=== PATIENT | female | born 1950 | race Caucasian/White ===

== ENCOUNTER 2020-08-05 21:15 | Emergency (ER) | payer MEDICARE, SELFPAY ==
[2020-08-05 21:40] VITALS: BP 171/75; PULSE 50; RESP 16; TEMP 36.2; O2SAT 96; BMI 32.5
--- NOTE | 2020-08-05 21:54 | ECG_ITS ---
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 Measurements Intervals [place] Rate: P: HI: QRS: 0 QRSD: T: 0 QT: QTc: Interpretive Statements SUPRAVENTRICULAR BRADYCARDIA-possibly sinus INDETERMINATE AXIS ABNORMAL RHYTHM ECG WARNING: DATA QUALITY MAY AFFECT INTERPRETATION No previous ECG available for comparison Electronically Signed On 08-06-2020 23:51:26 CDT by Almas Winter M.D. [id number]
--- NOTE | 2020-08-05 22:12 | CTR_ITS ---
PROCEDURE INFORMATION: Exam: CT Angiography Chest With Contrast Exam date and time: 08/05/2020 11:21 PM Age: 70 years old Clinical indication: Abdominal pain; Generalized; Chest pain; Additional info: Chest/abdomnal pain, SOB TECHNIQUE: Imaging protocol: Computed tomographic angiography of the chest with contrast. 3D rendering (Not supervised by radiologist): MIP and/or 3D reconstructed images were created by the technologist. Radiation optimization: All CT scans at this facility use at least one of these dose optimization techniques: automated exposure control; mA and/or kV adjustment per patient size (includes targeted exams where dose is matched to clinical indication); or iterative reconstruction. Contrast material: OMNI 350; Contrast volume: 95 ml; Contrast route: INTRAVENOUS (IV); COMPARISON: No relevant prior studies available. RADIATION DOSE METRICS: Total DLP (mGy-cm): 1541.69 FINDINGS: Pulmonary arteries: Normal. No pulmonary emboli. Aorta: Unremarkable. No aortic aneurysm. No aortic dissection. Lungs: Incidental calcified granuloma in the right lower lobe. There are several bands of linear atelectasis in the middle lobe and lingula. Pleural spaces: No pneumonia, mass or pleural effusion. Heart: Unremarkable. No cardiomegaly. No pericardial effusion. Lymph nodes: Incidental calcified right hilar lymph nodes. Bones/joints: Mild chronic degenerative changes in the midthoracic spine. Soft tissues: Unremarkable. IMPRESSION: No significant chest findings. PROCEDURE INFORMATION: Exam: CT Abdomen And Pelvis With Contrast Exam date and time: 08/05/2020 11:21 PM Age: 70 years old Clinical indication: Abdominal pain; Generalized; Chest pain; Additional info: Chest/abdomnal pain, SOB TECHNIQUE: Imaging protocol: Computed tomography of the abdomen and pelvis with contrast. Radiation optimization: All CT scans at this facility use at least one of these dose optimization techniques: automated exposure control; mA and/or kV adjustment per patient size (includes targeted exams where dose is matched to clinical indication); or iterative reconstruction. Contrast material: OMNI 350; Contrast volume: 95 ml; Contrast route: INTRAVENOUS (IV); COMPARISON: No relevant prior studies available. RADIATION DOSE METRICS: Total DLP (mGy-cm): 1541.69 FINDINGS: Liver: There is incidental perfusion anomaly in hepatic segment 5. The liver is otherwise normal. Gallbladder and bile ducts: Normal. No calcified stones. No ductal dilation. Pancreas: Normal. No ductal dilation. Spleen: Normal. No splenomegaly. Adrenal glands: Normal. No mass. Kidneys and ureters: Normal. No hydronephrosis. Stomach and bowel: No bowel obstruction or ileus. Numerous calcifications and a possible patent anastomosis is noted at the rectosigmoid junction. Appendix: No evidence of appendicitis. Intraperitoneal space: No free fluid or mesenteric edema. Vasculature: Scattered calcified plaques in the abdominal aorta. No aneurysm or significant stenosis. Lymph nodes: Unremarkable. No enlarged lymph nodes. Urinary bladder: Unremarkable as visualized. Reproductive: The uterus is surgically absent and the ovaries are not seen. Bones/joints: Chronic lower lumbar degenerative disc disease. Soft tissues: Small umbilical hernia consist of fatty tissue only. CT/CT angio chest w abd pel w con IMPRESSION: 1. No significant abdominal or pelvic findings 2. Incidental findings as described Radiation Dose CTDIVOL = (mGy): DLP = 1541.69~1541.69 (mGy-cm)
[2020-08-05 22:14] VITALS: BP 152/73; PULSE 51; RESP 17; O2SAT 96
[2020-08-05] MEDS: ondansetron 2 mg/ML SDV 2 mL 8 MG IVP (22:17)
[2020-08-05 22:20] LABS: Basophils # 0.1 10^3/uL (0.0-0.1); Eosinophils # 0.1 10^3/uL (0.0-0.8); Hemoglobin 13.4 g/dL (11.5-15.3); Lymphocytes # 2.4 10^3/uL (0.8-4.8); Lymphocytes % 33.9 %; Mean Corpuscular HGB Conc 31.9 g/dL (30.0-36.0); Mean Corpuscular Hemoglobin 28.6 pg (28.0-34.0); Mean Corpuscular Volume 89.6 fL (81-99); Mean Platelet Volume 9.8 fL (7.4-10.4); Monocytes # 0.6 10^3/uL (0.2-0.9); Monocytes % 7.8 %; Neutrophils # 3.86 10^3/uL (1.8-7.7); Nucleated Red Blood Cells % 0 %; Platelet Count 293 10^3/cmm (130-400); Red Blood Count 4.69 10^6/uL (4.1-5.3); Red Cell Distribution Width 12.7 % (12.1-15.1)
[2020-08-05] MEDS: sodium chloride 0.9% 1,000 ML 999 ML IV (22:29)
[2020-08-05] MEDS: lidocaine 2% viscous 15 ML, aluminum-mag hydrox-simethicon 30 ML, sucralfate oral liq 1 GM PO (22:29)
[2020-08-05 22:38] LABS: Troponin(5th) Baseline 10 ng/L (0-10)
[2020-08-05 22:45] VITALS: BP 152/73; PULSE 47; RESP 15; O2SAT 97
[2020-08-05 22:46] LABS: Alanine Aminotransferase 22 U/L (0-33); Albumin Level 4.6 g/dL (3.5-5.2); Alkaline Phosphatase 52 IU/L (35-105); Anion Gap 15.9 (5-19); Aspartate Amino Transferase 24 U/L (0-32); Blood Urea Nitrogen 17 mg/dL (8-23); Calcium 9.5 mg/dL (8.5-10.5); Carbon Dioxide 30 mmol/L (22-29); Chloride 96 mmol/L (98-107); Globulin 2.6 g/dL (1.3-4.6); Glucose 90 mg/dL (65-115); Lipase 38 U/L (13-60); NT Pro B Type Natriuretic Pept 263 pg/mL (0-125); Osmolality Calculated 287 mOsm/kg (285-295); Potassium 3.9 mmol/L (3.5-5.1); Sodium 138 mmol/L (136-145); Total Bilirubin 0.5 mg/dL (0.15-1.2); Total Protein 7.2 g/dL (6.6-8.7)
[2020-08-05 22:59] LABS: Add Urine Microscopic? YES; Bilirubin Urine Neg (Negative); Blood Urine Neg (Negative); Glucose Urine UA Norm (Normal); Ketones Urine Negative (Negative); Leukocyte Esterase Urine 2+ (Negative); Nitrate Urine Negative (Negative); Protein Urine Neg (Negative); Sulfosalicylic Acid Urine Negative (Negative); Urine Appearance Clear (CLEAR); Urine Color Yellow (Yellow); Urobilinogen Urine Norm (Negative); pH Urine 8 (5-7)
[2020-08-05 23:00] VITALS: BP 152/71; PULSE 46; RESP 16; O2SAT 97
[2020-08-05 23:00] LABS: RBC Urine 0-4 /hpf (0-2); Squamous Epithelial Cell Urine 0-4 /hpf (0-5)
[2020-08-05 23:01] LABS: Add Urine Culture? Yes; Bacteria Urine TRACE /hpf; Renal Epithelial Cells Urine 0-4 /hpf
[2020-08-05] MEDS: iohexol 350 mg/mL 100 mL Btl IV (23:42)
[2020-08-06] VITALS: BP 149/66; PULSE 51; RESP 20; O2SAT 96
[2020-08-06 01:00] VITALS: BP 117/67; PULSE 54; RESP 23; O2SAT 94
[2020-08-06] MEDS: cefTRIAXone 1,000 MG in sodium chloride 0.9% (plus) 50 ML 100 MG IV (01:16)
[2020-08-06 01:25] LABS: Troponin 5 2HR 10.53 ng/L (0-10); Troponin 5 2HR Delta 0.53 ABS# (0-10)
[2020-08-06 01:58] VITALS: BP 144/64; PULSE 53; RESP 16; TEMP 36.6; O2SAT 96
--- NOTE | 2020-08-06 04:19 | W.ED.SOB ---
HPI - SOB/Dyspnea General: Chief Complaint: Shortness of Breath/Dyspnea Stated Complaint: SOB, bloating, high blood pressure, Time Seen by Provider: 08/05/20 21:47 History of Present Illness: HPI Narrative: 70-year-old female presenting with multiple complaints including a bloated sensation in her right upper abdomen, shortness of breath, and chest and belly discomfort. No vomiting. No diarrhea. No fever MD elicited complaint: shortness of breath Pertinent past history: other Onset (ago): hour(s) Timing: intermittent Severity: moderate Exacerbating factors: exertion and stress Associated symptoms: Reports chest pain and nausea; Deny cough, dizziness, fever(s) or vomiting Treatment prior to arrival: none Review of Systems Const: Denies: fever(s) Eyes: Denies: change in vision ENMT: Denies: odynophagia or sinus pain Card: Reports: chest pain Resp: Reports: dyspnea; Denies: productive cough, non-productive cough or wheezing GI: Reports: nausea; Denies: vomiting : Denies: dysuria or urinary frequency Musc: Denies: neck pain or back pain Skin/Breast: Denies: rash or erythema Neuro: Denies: headache(s), dizziness or vertigo Psych: Denies: anxiety Physical Exam Const: GENERAL APPEARANCE: well developed ORIENTATION/CONSCIOUSNESS: Yes oriented to person, Yes oriented to place and Yes oriented to time HENMT: COMMON NORMALS: normocephalic, external ears normal and Normal external nose present HEAD & SCALP: normocephalic FACE & SINUS: normal facial exam NOSE: Normal external nose present and No nasal discharge present EXTERNAL EAR: Yes external ears normal MOUTH: tongue normal Eye: COMMON NORMALS: Equal, round and reactive pupils present, EOMs intact bilaterally and conjunctivae normal EYELID: eyelids normal CONJUNCTIVA: Yes conjunctivae normal PUPIL: Yes Equal, round and reactive pupils present Neck/C-Spine: GENERAL: No tracheal deviation Chest: COMMONS NORMALS: normal inspection of the chest CHEST: No tenderness Resp: COMMON NORMALS: clear to auscultation bilaterally EFFORT & INSPECTION: No tachypneic, No respiratory distress, No retractions, No uses accessory muscles and No tracheal deviation AUSCULTATION: clear to auscultation bilaterally, no rhonchi, no wheezes and lung sounds not diminished Cardio: COMMON NORMALS: regular rhythm RATE: bradycardic RHYTHM: regular rhythm HEART SOUNDS: no murmurs PERIPHERAL PULSES: radial pulses present GI: INSPECTION: No abdominal distension AUSCULTATION: No Hyperactive bowel sounds present and No Hypoactive bowel sounds present PALPATION: No Guarding due to palpation present (GI) and No Rigid due to palpation PERCUSSION: no dullness to percussion and no tympanic to percussion Neuro: SENSORIUM/ORIENTATION: Yes oriented to person, Yes oriented to place and Yes oriented to time Psych: COMMON NORMALS: mental status grossly normal Skin: COMMON NORMALS: no rashes or lesions noted GENERAL SKIN EXAM: no rashes or lesions noted Course Vital Signs: Vital signs: Vital Signs Temperature 97.8 F 08/06/20 01:58 Pulse Rate 53 L 08/06/20 01:58 Respiratory Rate 16 08/06/20 01:58 Blood Pressure 144/64 08/06/20 01:58 Pulse Oximetry 96 08/06/20 01:58 MDM - SOB/Dyspnea MDM Narrative: Medical decision making narrative: 70-year-old female with bloating, shortness of breath, chest and belly discomfort. Hemoglobin 13.4. White blood cell count 7. Like her lites renal function and liver enzymes are benign. Her troponin did not elevate at 2 hours. EKG showed a sinus bradycardia without ST change. Urinalysis showed 2+ leukocyte esterase with leukocytes in the urine. She is given a gram of Rocephin for this. CTs of the chest abdomen pelvis negative for any acute problems. She has had improvement in her symptoms. Encouraged outpatient follow-up, and return for worsening again Lab Data: Labs: Lab Results 08/05/20 08/05/20 08/05/20 Range/Units 22:10 22:10 22:10 WBC 7.0 (4.0-10.0) 10^3/ uL RBC 4.69 (4.1-5.3) 10^6/u L Hgb 13.4 (11.5-15.3) g/dL Hct 42.0 (37.0-47.0) % MCV 89.6 (81-99) fL MCH 28.6 (28.0-34.0) pg MCHC 31.9 (30.0-36.0) g/dL RDW 12.7 (12.1-15.1) % Plt Count 293 (130-400) 10^3/c mm MPV 9.8 (7.4-10.4) fL Neut % (Auto) 55.0 % Lymph % (Auto) 33.9 % [place] % (Auto) 7.8 % Eos % (Auto) 2.0 % Baso % (Auto) 1.0 % Neut # (Auto) 3.86 (1.8-7.7) 10^3/u L Lymph # (Auto) 2.4 (0.8-4.8) 10^3/u L [place] # (Auto) 0.6 (0.2-0.9) 10^3/u L Eos # (Auto) 0.1 (0.0-0.8) 10^3/u L Baso # (Auto) 0.1 (0.0-0.1) 10^3/u L Nucleated RBC % (a uto) 0 % Nucleated RBCs # 0.0 /100WBC Sodium 138 (136-145) mmol/L Potassium 3.9 (3.5-5.1) mmol/L Chloride 96 L (98-107) mmol/L Carbon Dioxide 30 H (22-29) mmol/L Anion Gap 15.9 (5-19) BUN 17 (8-23) mg/dL Creatinine 0.8 (0.5-0.9) mg/dL GFR Calculation Not Reportable Glucose 90 (65-115) mg/dL Calculated Osmolal ity 287 (285-295) mOsm/k g Calcium 9.5 (8.5-10.5) mg/dL Total Bilirubin 0.5 (0.15-1.2) mg/dL AST 24 (0-32) U/L ALT 22 (0-33) U/L Alkaline Phosphata se 52 (35-105) IU/L Troponin T Baselin e 10 (0-10) ng/L Troponin T 120 Min jaime (0-10) ng/L Delta Troponin T (0-10) ABS# NT-Pro-B Natriuret Pep 263 H (0-125) pg/mL Total Protein 7.2 (6.6-8.7) g/dL Albumin 4.6 (3.5-5.2) g/dL Globulin 2.6 (1.3-4.6) g/dL Lipase 38 (13-60) U/L Urine Color (Yellow) Urine Appearance (CLEAR) Urine pH (5-7) Ur Specific Gravit y (1.005-1.030) Urine Protein (Negative) Urine Glucose (UA) (Normal) Urine Ketones (Negative) Urine Blood (Negative) Urine Nitrate (Negative) Urine Bilirubin (Negative) Prot Sulfosalicyli c Acd (Negative) Urine Urobilinogen (Negative) mg/dL Ur Leukocyte Dorie ase (Negative) Urine RBC (0-2) /hpf Urine WBC (0-5) /hpf Ur Squamous Epith Cells (0-5) /hpf Ur Renal Epithelia l Cell /hpf Amorphous Sediment Urine Bacteria (NONE) /hpf 08/05/20 08/06/20 Range/Units 22:29 00:25 WBC (4.0-10.0) 10^3/ uL RBC (4.1-5.3) 10^6/u L Hgb (11.5-15.3) g/dL Hct (37.0-47.0) % MCV (81-99) fL MCH (28.0-34.0) pg MCHC (30.0-36.0) g/dL RDW (12.1-15.1) % Plt Count (130-400) 10^3/c mm MPV (7.4-10.4) fL Neut % (Auto) % Lymph % (Auto) % [place] % (Auto) % Eos % (Auto) % Baso % (Auto) % Neut # (Auto) (1.8-7.7) 10^3/u L Lymph # (Auto) (0.8-4.8) 10^3/u L [place] # (Auto) (0.2-0.9) 10^3/u L Eos # (Auto) (0.0-0.8) 10^3/u L Baso # (Auto) (0.0-0.1) 10^3/u L Nucleated RBC % (a uto) % Nucleated RBCs # /100WBC Sodium (136-145) mmol/L Potassium (3.5-5.1) mmol/L Chloride (98-107) mmol/L Carbon Dioxide (22-29) mmol/L Anion Gap (5-19) BUN (8-23) mg/dL Creatinine (0.5-0.9) mg/dL GFR Calculation Glucose (65-115) mg/dL Calculated Osmolal ity (285-295) mOsm/k g Calcium (8.5-10.5) mg/dL Total Bilirubin (0.15-1.2) mg/dL AST (0-32) U/L ALT (0-33) U/L Alkaline Phosphata se (35-105) IU/L Troponin T Baselin e (0-10) ng/L Troponin T 120 Min jaime 10.53 H (0-10) ng/L Delta Troponin T 0.53 (0-10) ABS# NT-Pro-B Natriuret Pep (0-125) pg/mL Total Protein (6.6-8.7) g/dL Albumin (3.5-5.2) g/dL Globulin (1.3-4.6) g/dL Lipase (13-60) U/L Urine Color Yellow (Yellow) Urine Appearance Clear (CLEAR) Urine pH 8 H (5-7) Ur Specific Gravit y 1.010 (1.005-1.030) Urine Protein Neg (Negative) Urine Glucose (UA) Norm (Normal) Urine Ketones Negative (Negative) Urine Blood Neg (Negative) Urine Nitrate Negative (Negative) Urine Bilirubin Neg (Negative) Prot Sulfosalicyli c Acd Negative (Negative) Urine Urobilinogen Norm (Negative) mg/dL Ur Leukocyte Dorie ase 2+ H (Negative) Urine RBC 0-4 H (0-2) /hpf Urine WBC 5-10 H (0-5) /hpf Ur Squamous Epith Cells 0-4 H (0-5) /hpf Ur Renal Epithelia l Cell 0-4 /hpf Amorphous Sediment Not Reportable Urine Bacteria Trace (NONE) /hpf Discharge Plan Discharge Patient Disposition: Home Clinical Impression: Gastro-esophageal reflux Qualifiers: Esophagitis presence: without esophagitis Qualified Code(s): K21.9 - Gastro-esophageal reflux disease without esophagitis Condition: Stable Prescriptions: New Prevacid 30 mg capsule,delayed release(DR/EC) 30 mg PO DAILY Qty: 30 RF: 0 Discharge Orders: Discharge ED (Routine); Ordered 08/06/20 Ordered By: Hadley Arias Discharge Diet: Advance as tolerated Discharge Activity: Increase activity as tolerated Patient Instructions: Urinary Tract Infection in Women (ED), Gastroesophageal Reflux Disease (ED) Activity Restrictions/Additional Instructions: Return for chest or belly discomfort, nausea or vomiting, worsening shortness of breath, fever greater than 100, other concerning symptoms. Follow-up with your doctor later this week, as there may be more tests they wish to run as an outpatient. Coding Level of Care Code ED Body Piercer for Murray Chapin
== END 2020-08-06 02:00 | disposition home or self-care (01) ==
PROVIDERS: Emergency Provider Emergency Medicine
DX: K21.9 Gastro-esophageal reflux disease without esophagitis (principal)
CPT/HCPCS: 71275; 74177; 80053; 81001; 83690; 83880; 84484; 85025; 87086; 93005; 96365; 96375; 99284; J0696; J2405; J7030; Q9967